=== PATIENT | female | born 1945 | race Two or more races ===

== ENCOUNTER 2019-11-07 07:30 | Day surgery (SDC) | payer OTHER | END 2019-11-07 16:25 | disposition home or self-care (01) | LOC: AMB-ENDOS 07:30 | PROVIDERS: ATTEND Colon & Rectal Surgery | DX: D12.3 Benign neoplasm of transverse colon (principal); Z20.828 Contact with and (suspected) exposure to other viral communicable diseases; K64.0 First degree hemorrhoids ==